=== PATIENT | female | born 1980 | race Hispanic/Latino ===

== ENCOUNTER 2017-08-26 16:35 | Emergency (ER) | payer SELFPAY ==
[2017-08-26 17:41] LABS: Absolute Lymphocytes (CBC) 1.9 K/uL (0.7-4.9); Absolute Monocytes 0.6 K/uL (0.1-1.3); Absolute Neutrophil 7.8 K/uL (1.8-8.0); Basophils % 0.4 % (0-1.3); Eosinophils % 0.4 % (0-4.4); Hematocrit 38.5 % (36.0-45.0); Lymphocytes % 18.1 % (15.3-44.8); MCH 27.5 pg (27.0-35.0); MCV 85.2 fL (80-100); MPV 7.6 fL (7.6-11.3); Monocytes % 5.5 % (3.3-12.3); RBC Red Blood Cell Count 4.52 M/uL (3.86-4.86)
[2017-08-26 17:41] LABS: Urine Blood 3+ (NEG); Urine Glucose NEGATIVE (NEG); Urine Protein TRACE (NEG); Urine Specific Gravity 1.025 (1.005-1.030)
[2017-08-26 17:52] LABS: Potassium 3.3 mEq/L (3.6-5.0)
--- NOTE | 2017-08-26 18:58 | RAD REPORT ---
EXAM DESCRIPTION: US - Transvaginal OB - 08/26/2017 5:59 pm CLINICAL HISTORY: with abdominal pain and vaginal bleeding COMPARISON: None. FINDINGS: The uterus measures 9 x 5 x 6 centimeters. . The endometrial stripe measures 9 millimete rs. The cervical canal measures 1 centimeter. A gestational sac is not seen. The ovaries are normal in size and echotexture. No significant free fluid is seen. IMPRESSION: A gestational sac is not seen. This probably indicates an . Other considerations include an early IUP in which the gestational sac is not seen and even an ectopic. This all should b e correlated clinically and with serial beta HCG levels. Followup endovaginal sonogram in 1 week woul d be helpful
--- NOTE | 2017-08-26 22:23 | ER ---
Nurse's Notes [facility] Name: Sandy Brooks Age: 36 yrs Sex: Female : 1980 Arrival Date: 08/26/2017 Time: 16:39 Bed 14 Private MD: out of town, doctor Diagnosis: Spontaneous Presentation: 08/26 16:51 Presenting complaint: Significant other states: " She is about 10 weeks and ph she has been bleeding for a few weeks now but today it started getting heavier." Pt reports abdominal and lower back pain, also reports passing clots, denies urinary symptoms. Transition of care: patient was not received from another setting of care. Onset of symptoms was August 26, 2017. Risk Assessment: Do you want to hurt yourself or someone else? Patient reports no desire to harm self or others. Initial Sepsis Screen: Does the patient meet any 2 criteria? No. Patient's initial sepsis screen is negative. Does the patient have a suspected source of infection? No. Patient's initial sepsis screen is negative. Care prior to arrival: None. 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 - Social history:: Smoking status: Patient/guardian denies using tobacco. - Ebola Screening: : Patient denies travel to an Ebola-affected area in the 21 days before illness onset. Screenin:01 Abuse screen: Denies threats or abuse. Nutritional screening: No deficits noted. tw2 Tuberculosis screening: No symptoms or risk factors identified. Fall Risk None identified. Assessment: 17:11 Obstetrical Assessment: Patient reports Abdominal pain, back pain. General: Appears in tw2 no apparent distress. Behavior is calm, cooperative, appropriate for age. Pain: Complains of pain in suprapubic area, right lower quadrant and left lower quadrant. Neuro: Level of Consciousness is awake, alert, obeys commands, Oriented to person, place, time, situation. Cardiovascular: Denies chest pain, shortness of breath, Heart tones S1 S2 Capillary refill < 3 seconds Patient's skin is warm and dry. Respiratory: Airway is patent Respiratory effort is even, unlabored, Respiratory pattern is regular, symmetrical, Breath sounds are clear bilaterally. GI: Abdomen is flat, Bowel sounds present X 4 quads. Reports lower abdominal pain. : Reports vaginal bleeding that is "for weeks now but its gotten heavier". Derm: Skin is intact, is healthy with good turgor, Skin is dry, Skin temperature is warm. 18:09 Reassessment: Patient appears in no apparent distress at this time. No changes from tw2 previously documented assessment. Patient and/or family updated on plan of care and expected duration. Pain level reassessed. Patient is alert, oriented x 3, equal unlabored respirations, skin warm/dry/pink. 20:06 Reassessment: Patient appears in no apparent distress at this time. No changes from mb3 previously documented assessment. Patient and/or family updated on plan of care and expected duration. Pain level reassessed. Patient is alert, oriented x 3, equal unlabored respirations, skin warm/dry/pink. 21:51 Reassessment: Patient appears in no apparent distress at this time. No changes from mb3 previously documented assessment. Patient and/or family updated on plan of care and expected duration. Pain level reassessed. Patient is alert, oriented x 3, equal unlabored respirations, skin warm/dry/pink. Vital Signs: 16:55 BP 108 / 56; Pulse 70; Resp 18; Temp 97.8; Pulse Ox 100% on R/A; Weight 62.6 kg; Height ph 5 ft. 2 in. (157.48 cm); 18:09 BP 99 / 57; Pulse 62; Resp 17; Pulse Ox 100% on R/A; tw2 20:05 BP 136 / 85; Pulse 79; Resp 16; Pulse Ox 97% on R/A; mb3 21:50 BP 103 / 53; Pulse 72; Resp 16; Pulse Ox 100% on R/A; mb3 22:42 BP 98 / 58; Pulse 72; Resp 16; Pulse Ox 98% on R/A; mb3 16:55 Body Mass Index 25.24 (62.60 kg, 157.48 cm) ph Vitals: 22:50 Heart Tones not available. mb3 ED Course: 16:39 Patient arrived in ED. mr 16:39 out of town, doctor is Private Physician. mr 16:55 Triage completed. ph 16:55 Arm band placed on. ph 16:57 Tereista Orellana RN is Primary Nurse. tw2 16:57 Timo Resendiz, COLEEN is PHCP. pm1 16:57 Jimmy Hooker MD is Attending Physician. pm1 17:13 Placed in gown. Bed in low position. Adult w/ patient. Pulse ox on. NIBP on. Warm tw2 blanket given. 17:33 Initial lab(s) drawn, by me, sent to lab. Urine collected: clean catch specimen, blood mh5 tinged. Inserted saline lock: 22 gauge in right antecubital area, using aseptic technique. Blood collected. 17:34 Urine --Ancillary (enter results) Sent. mh5 17:34 Urine Dipstick--Ancillary (enter results) Sent. mh5 17:35 Quantitative Hcg Sent. mh5 17:35 Abo/rh Typing Sent. mh5 17:35 Basic Metabolic Panel Sent. mh5 17:35 CBC with Diff Sent. mh5 17:59 US Transvaginal Ob In Process Unspecified. EDMS 19:05 Report given to Paul<RN. tw2 19:52 Warm blanket given. mb3 22:43 No provider procedures requiring assistance completed. IV discontinued, intact, mb3 bleeding controlled, No redness/swelling at site. Pressure dressing applied. Administered Medications: No medications were administered Point of Care Testing: Urine : 17:13 hCG Reading: Positive; Control Reading: Negative; tw2 Outcome: 22:22 Discharge ordered by . pm1 22:49 Discharged to home ambulatory, with family. mb3 22:49 Condition: stable 22:49 Discharge instructions given to patient, family, Instructed on discharge instructions, follow up and referral plans. Demonstrated understanding of instructions, follow-up care. 22:51 Patient left the ED. mb3 Signatures: Dis[facility] Sandy Bennett Karen Rivas RN RN Timo Resendiz, MANAGER ANALYTICAL MANAGER ANALYTICAL pm1 Teresita Orellana RN RN 2 Sandy Epstein 5 Paul Ryder RN RN mb3
--- NOTE | 2017-08-26 22:23 | EDPHYS ---
Physician Documentation [facility] Name: Sandy Brooks Age: 36 yrs Sex: Female : 1980 Arrival Date: 08/26/2017 Time: 16:39 Bed 14 Private MD: out of town, doctor ED Physician Jimmy Hooker HPI: 08/26 22:00 This 36 yrs old Female presents to ER via Ambulatory with complaints of pm1 Vaginal Bleeding, + Preg <12wks. 22:00 Patient with office visit last for vaginal bleeding. Patient has been having pm1 vaginal bleeding for 1 week. Yesterday she has passed tissue, blood, and clots. 22:00 The patient presents to the emergency department with vaginal bleeding, that is light, pm1 with clots, with tissue. The estimated gestational age is 10 weeks. course: care: at a clinic. Previous pregnancies: in previous pregnancies patient has had vaginal delivery, no complications. Associated signs and symptoms: Pertinent negatives: abdominal pain, chest pain, dysuria, fever, nausea, shortness of breath, vaginal discharge, vomiting. The patient has experienced a previous episode, and the symptoms today are exactly the same, to prior miscarriage. 22:00 Patient with appointment tomorrow with OB clinic. 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 - Social history:: Smoking status: Patient/guardian denies using tobacco. - Ebola Screening: : Patient denies travel to an Ebola-affected area in the 21 days before illness onset. ROS: 22:00 Constitutional: Negative for fever, chills, and weight loss, Eyes: Negative for injury, pm1 pain, redness, and discharge, ENT: Negative for injury, pain, and discharge, Neck: Negative for injury, pain, and swelling, Cardiovascular: Negative for chest pain, palpitations, and edema, Respiratory: Negative for shortness of breath, cough, wheezing, and pleuritic chest pain, Abdomen/GI: Negative for abdominal pain, nausea, vomiting, diarrhea, and constipation, Back: Negative for injury and pain. 22:00 MS/Extremity: Negative for injury and deformity, Skin: Negative for injury, rash, and discoloration, Neuro: Negative for headache, weakness, numbness, tingling, and seizure. 22:00 : Positive for vaginal bleeding, Negative for pelvic pain, burning with urination. Exam: 22:00 Constitutional: This is a well developed, well nourished patient who is awake, alert, pm1 and in no acute distress. Head/Face: Normocephalic, atraumatic. Eyes: Pupils equal round and reactive to light, extra-ocular motions intact. Lids and lashes normal. Conjunctiva and sclera are non-icteric and not injected. Cornea within normal limits. Periorbital areas with no swelling, redness, or edema. ENT: Nares patent. No nasal discharge, no septal abnormalities noted. Tympanic membranes are normal and external auditory canals are clear. Oropharynx with no redness, swelling, or masses, exudates, or evidence of obstruction, uvula midline. Mucous membranes moist. Neck: Trachea midline, no thyromegaly or masses palpated, and no cervical lymphadenopathy. Supple, full range of motion without nuchal rigidity, or vertebral point tenderness. No Meningismus. Chest/axilla: Normal chest wall appearance and motion. Nontender with no deformity. No lesions are appreciated. Cardiovascular: Regular rate and rhythm with a normal S1 and S2. No gallops, murmurs, or rubs. Normal PMI, no JVD. No pulse deficits. Respiratory: Lungs have equal breath sounds bilaterally, clear to auscultation and percussion. No rales, rhonchi or wheezes noted. No increased work of breathing, no retractions or nasal flaring. 22:00 Back: No spinal tenderness. No costovertebral tenderness. Full range of motion. 22:00 Skin: Warm, dry with normal turgor. Normal color with no rashes, no lesions, and no evidence of cellulitis. MS/ Extremity: Pulses equal, no cyanosis. Neurovascular intact. Full, normal range of motion. 22:00 Abdomen/GI: Inspection: abdomen appears normal, Bowel sounds: normal, Palpation: abdomen is soft and non-tender, in all quadrants. 22:00 Neuro: Orientation: is normal, Motor: is normal, moves all fours, Gait: is steady, at a normal pace, without difficulty. 22:17 : Pelvic Exam: External exam: is normal, Speculum exam: mild bleeding, blood clots in pm1 vaginal vault, tissue in vagina is seen, send to pathology, [facility]. 22:31 : Pelvic Exam: bimanual exam reveals os that is closed, Anna. pm1 Vital Signs: 16:55 BP 108 / 56; Pulse 70; Resp 18; Temp 97.8; Pulse Ox 100% on R/A; Weight 62.6 kg; Height ph 5 ft. 2 in. (157.48 cm); 18:09 BP 99 / 57; Pulse 62; Resp 17; Pulse Ox 100% on R/A; tw2 20:05 BP 136 / 85; Pulse 79; Resp 16; Pulse Ox 97% on R/A; mb3 21:50 BP 103 / 53; Pulse 72; Resp 16; Pulse Ox 100% on R/A; mb3 22:42 BP 98 / 58; Pulse 72; Resp 16; Pulse Ox 98% on R/A; mb3 16:55 Body Mass Index 25.24 (62.60 kg, 157.48 cm) ph MDM: 17:03 Patient medically screened. pm1 22:18 Data reviewed: vital signs. Data interpreted: Pulse oximetry: on room air is 100 %. pm1 Interpretation: normal. Counseling: I had a detailed discussion with the patient and/or guardian regarding: the historical points, exam findings, and any diagnostic results supporting the discharge/admit diagnosis, lab results, radiology results, the need for outpatient follow up, to return to the emergency department if symptoms worsen or persist or if there are any questions or concerns that arise at home. 08/26 17:14 Order name: Quantitative Hcg; Complete Time: 19:20 pm1 08/26 17:14 Order name: Abo/rh Typing; Complete Time: 19:20 pm1 08/26 17:14 Order name: Basic Metabolic Panel; Complete Time: 19:20 pm1 08/26 17:14 Order name: CBC with Diff; Complete Time: 19:20 pm1 08/26 17:22 Order name: Urine Dipstick--Ancillary (enter results); Complete Time: 19:20 ss 08/26 17:22 Order name: Urine --Ancillary (enter results); Complete Time: 19:20 ss 08/26 17:14 Order name: Urine Test (obtain specimen); Complete Time: 17:15 pm1 08/26 17:14 Order name: IV Saline Lock; Complete Time: 17:33 pm1 08/26 17:14 Order name: Labs collected and sent; Complete Time: 17:33 pm1 08/26 17:14 Order name: NPO; Complete Time: 17:16 pm1 08/26 17:14 Order name: Urine Dipstick-Ancillary (obtain specimen); Complete Time: 17:16 pm1 08/26 17:14 Order name: US Transvaginal Ob; Complete Time: 19:20 pm1 08/26 19:48 Order name: Pelvic Exam Setup pm1 Administered Medications: No medications were administered Point of Care Testing: Urine : 17:13 hCG Reading: Positive; Control Reading: Negative; tw2 Disposition: 08/27 09:31 Co-signature as Attending Physician, Jimmy Hooker MD I agree with the assessment and yonas plan of care. Disposition: 08/26/17 22:22 Discharged to Home. Impression: Spontaneous . - Condition is Stable. - Discharge Instructions: Miscarriage. - Medication Reconciliation Form, Thank You Letter form. - Follow up: Emergency Department; When: As needed; Reason: Worsening of condition. Follow up: Private Physician; When: As scheduled; Reason: Recheck today's complaints, Continuance of care, Re-evaluation by your physician. - Problem is new. - Symptoms have improved. Signatures: Dispatcher [employer] Jimmy Manley MD MD cha Hall, Patricia, RN RN ph Marinas, Patrick, GLASS SETTER GLASS SETTER pm1 Teresita Orellana RN RN tw2 Paul Ryder RN RN mb3 Corrections: (The following items were deleted from the chart) 08/26 22:51 22:22 08/26/2017 22:22 Discharged to Home. Impression: Spontaneous . Condition mb3 is Stable. Forms are Medication Reconciliation Form, Thank You Letter, Antibiotic Education, Prescription Opioid Use. Follow up: Emergency Department; When: As needed; Reason: Worsening of condition. Follow up: Private Physician; When: As scheduled; Reason: Recheck today's complaints, Continuance of care, Re-evaluation by your physician. Problem is new. Symptoms have improved. pm1
== END 2017-08-26 22:51 | disposition home or self-care (01) ==
LOC: ER 16:35
DX: O03.9 Complete or unspecified spontaneous abortion without complication (principal)
CPT/HCPCS: 36415; 76817; 80048; 81003; 81025; 84702; 85025; 86900; 86901; 88305; 99284